=== PATIENT | female | born 1955 | race Caucasian/White ===

== ENCOUNTER 2024-12-29 15:56 | Emergency (ER) | payer MEDICARE, BC ==
[~2024-12-29] VITALS: Ht 165.1 cm; Wt 59.0 kg
[2024-12-29] MEDS ORDERED: ONDANSETRON 4 MG/2 ML VIAL ONE (16:23)
[2024-12-29] MEDS ORDERED: MORPHINE SULFATE 4 MG/1 ML DISP.SYRIN ONE ×2 (16:23→17:59)
[2024-12-29] MEDS: ONDANSETRON 4 MG/2 ML VIAL IV ONE (16:25)
[2024-12-29] MEDS: MORPHINE SULFATE 4 MG/1 ML DISP.SYRIN IV ONE ×2 (16:25→17:59)
[2024-12-29 18:53] VITALS: BP 121/77; O2SAT 98
== END 2024-12-29 18:54 | disposition home or self-care (01) ==
LOC: ER 16:08
DX: S06.0XAA Concussion with loss of consciousness status unknown, initial encounter (principal); E03.9 Hypothyroidism, unspecified; G44.309 Post-traumatic headache, unspecified, not intractable; I10 Essential (primary) hypertension; W01.0XXA Fall on same level from slipping, tripping and stumbling without subsequent striking against object, initial encounter; Y93.89 Activity, other specified; Y92.59 Other trade areas as the place of occurrence of the external cause; Y99.8 Other external cause status
CPT/HCPCS: 99285; 70450; 96374; 96375; 72125; 96376; J2405; J2270 ×2; A4606; A4663